=== PATIENT | female | born 2000 ===

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

== ENCOUNTER 2018-05-03 08:10 | Inpatient (IN) | payer OTHER ==
[~2018-05-03] VITALS: Ht 154.9 cm; Wt 60.0 kg
[~2018-05-03 08:10] MED LIST: VITAFOL-OB+DHA1 EACH PO
--- NOTE | 2018-05-03 10:55 | PR ---
[facility] [address] [facility] [place], [place] [address] Signed Progress Notes IP Datetime Report Generated by CPN: 05/03/2018 10:54 PROGRESS NOTES: [id number] Impression: Normal progression of labor Procedures: Artificial ROM Plan: Continue present management; Anticipate Vaginal Delivery VITAL SIGNS: [id number] Vital Signs: Reviewed; Within Normal Limits EXAM: [id number] Dilatation: 6.0 Effacement: 90 Station: -1 Uterine Contractions: every 3-4 minutes MEMBRANES: [id number] Membrane Status: Ruptured Amniotic Fluid Color: Clear ROM Note: AROM without difficulty, head well-applied to cervix Comments: Comfortable with Epidural Fetus A: [id number] FHR Baseline: 150 Variability: Moderate 6-25bpm Accelerations: 15X15 Presentation: Vertex Fetus B: [id number] Signing Physician: Huseyin Augustine MD Copies: ~ *Electronically Signed* 05/03/18 1054 HUSEYIN AUGUSTINE MD PATIENT NAME: SILVINO HUTCHINS PROGRESS NOTE DATE OF : 98 PHYSICIAN: HSUEYIN AUGUSTINE MD RPT #: [id number] REPORT IS CONFIDENTIAL AND NOT TO BE RELEASED WITHOUT AUTHORIZATION
--- NOTE | 2018-05-04 10:02 | PR ---
[facility] [address] [facility] [place], [place] [address] Signed PP Progress Notes Datetime Report Generated by CPN: 05/04/2018 10:02 SUBJECTIVE: [id number] Pain: Within normal limits Nausea/Vomiting: Denies Vital Signs: [id number] Vital Signs: Reviewed; Within Normal Limits Notable Details: 11.6/33.0 EXAM: [id number] Abdomen/Uterus: Normal Lochia: Normal Extremities: Normal IMPRESSION/PLAN/PROCEDURES: [id number] Impression: Normal progression Plan: Continue present management Procedures: None Progress Notes: Doing well, without complaint. Working on with RN's. Signing Physician: Huseyin Augustine MD Copies: ~ *Electronically Signed* 05/04/18 1002 HUSEYIN AUGUSTINE MD PATIENT NAME: SILVINO HUTCHINS PROGRESS NOTE DATE OF : 98 PHYSICIAN: HUSEYIN AUGUSTINE MD RPT #: [id number] REPORT IS CONFIDENTIAL AND NOT TO BE RELEASED WITHOUT AUTHORIZATION
--- NOTE | 2018-05-04 10:03 | PR ---
[facility] [address] [facility] [place], [place] [address] Signed PP Progress Notes Datetime Report Generated by CPN: 05/04/2018 10:03 SUBJECTIVE: [id number] Pain: Within normal limits Nausea/Vomiting: Denies Vital Signs: [id number] Vital Signs: Reviewed; Within Normal Limits Notable Details: 11.6/33.0 EXAM: [id number] Abdomen/Uterus: Normal Lochia: Normal Extremities: Normal IMPRESSION/PLAN/PROCEDURES: [id number] Impression: Normal progression Plan: Continue present management Procedures: None Progress Notes: Doing well, without complaint. Working on with RN's. Signing Physician: Huseyin Augustine MD Copies: ~ *Electronically Signed* 05/04/18 1003 HUSEYIN AUGUSTINE MD PATIENT NAME: SILVINO HUTCHINS PROGRESS NOTE DATE OF : 98 PHYSICIAN: HUSEYIN AUGUSTINE MD RPT #: [id number] REPORT IS CONFIDENTIAL AND NOT TO BE RELEASED WITHOUT AUTHORIZATION
--- NOTE | 2018-05-05 09:33 | PR ---
[facility] [address] [facility] [place], [place] [address] Signed PP Progress Notes Datetime Report Generated by CPN: 05/05/2018 09:33 SUBJECTIVE: [id number] Pain: Within normal limits Nausea/Vomiting: Denies Vital Signs: [id number] Vital Signs: Reviewed; Within Normal Limits Notable Details: 11.6/33.0 EXAM: [id number] Abdomen/Uterus: Normal Lochia: Normal Extremities: Normal IMPRESSION/PLAN/PROCEDURES: [id number] Impression: Normal progression Plan: Discharge Procedures: None Progress Notes: Doing well, without complaint. Ready to go home. Signing Physician: Huseyin Augustine MD Copies: ~ *Electronically Signed* 05/05/18 0933 HUSEYIN AUGUSTINE MD PATIENT NAME: SILVINO HUTCHINS PROGRESS NOTE DATE OF : 98 PHYSICIAN: HUSEYIN AUGUSTINE MD RPT #: [id number] REPORT IS CONFIDENTIAL AND NOT TO BE RELEASED WITHOUT AUTHORIZATION
== END 2018-05-05 12:20 | disposition home or self-care (01) | DRG 775 ==
LOC: FBCO 08:10 → FBC 08:20
PROVIDERS: ADMIT General Practice
PROC: 10E0XZZ Delivery of Products of Conception, External Approach (ICD-10-PCS; principal; 2018-05-03)
PROC: 3E0S3BZ Introduction of Anesthetic Agent into Epidural Space, Percutaneous Approach (ICD-10-PCS; 2018-05-03)
PROC: 00HU33Z Insertion of Infusion Device into Spinal Canal, Percutaneous Approach (ICD-10-PCS; 2018-05-03)
DX: O69.81X0 Labor and delivery complicated by cord around neck, without compression, not applicable or unspecified (principal); O32.6XX0 Maternal care for compound presentation, not applicable or unspecified; Z3A.40 40 weeks gestation of pregnancy; Z37.0 Single live birth
CPT/HCPCS: 01960; 85027; J2590; J7120